=== PATIENT | female | born 1985 | race Caucasian/White ===

== ENCOUNTER 2017-05-17 21:13 | Emergency (ER) | payer OTHER ==
[~2017-05-17] VITALS: Ht 162.6 cm; Wt 65.8 kg
[~2017-05-17 21:13] MED LIST: PHENERGAN 25 MG25 M1 PO; TRAZODONE HCL50 MG PO; ZOLOFT50 MG PO
[2017-05-17] MEDS ORDERED: PROZAC20 MG (21:26)
[2017-05-17] MEDS ORDERED: PREDNISONE50 MG PO (22:34)
[2017-05-17 22:50] VITALS: BP 97/49
[2017-05-18 01:09] LABS: ABSOLUTE BASOPHILS 0.1 thou/uL (0.0-0.2); ABSOLUTE EOSINOPHILS 0.2 thou/uL (0.0-0.7); ABSOLUTE LYMPHOCYTES 3.5 thou/uL (0.8-5.3); ABSOLUTE MONOCYTES 0.6 thou/uL (0.0-1.2); ABSOLUTE NEUTROPHILS 4.3 thou/uL (1.6-8.1); EOSINOPHILS 1.9 %; HEMOGLOBIN 14.4 gm/dL (12.0-15.0); LYMPHOCYTES 40.5 %; MCH 31.1 pg (26.0-34.0); MCHC 34.2 g/dL (28.0-37.0); MCV 90.9 fL (80.0-100.0); MONOCYTES 7.4 %; MPV 9.4 fl. (7.2-11.1); NUCLEATED RBCS 0 /100WBC; PLATELET COUNT* 291 thou/uL (150-400); POLYS 49.2 %; RBC 4.62 mil/uL (4.20-5.00); RDW-CV 12.3 % (10.5-14.5); WBC 8.7 thou/uL (4.0-11.0)
[2017-05-18 01:12] LABS: CALCIUM 8.7 mg/dL (8.5-10.1); CREATININE 0.8 mg/dL (0.6-1.3); POTASSIUM 3.3 mmol/L (3.5-5.1)
== END 2017-05-17 22:50 | disposition home or self-care (01) ==
LOC: M.ERS 21:13
PROVIDERS: Emergency Medicine
DX: L50.9 Urticaria, unspecified (principal); T78.49XA Other allergy, initial encounter; Z90.89 Acquired absence of other organs; Z88.8 Allergy status to other drugs, medicaments and biological substances; X58.XXXA Exposure to other specified factors, initial encounter